=== PATIENT | female | born 1975 | race Caucasian/White ===

== ENCOUNTER → 2017-10-12 | Outpatient (CLI) | payer MEDICAID ==
[~2017-10-12] MED LIST: ACET500T68 PO; BUPR-133 PO; HYDR-4309 PO; IBUP-1687 PO; SULF5DRO OD; TRAM-420 PO
[2017-10-12 11:56] LABS: PLATELET COUNT, AUTOMATED 289 K/uL (150-450)
== END ==
LOC: LAB 11:42
PROVIDERS: ATTEND Anesthesiology
DX: Z01.812 Encounter for preprocedural laboratory examination (principal); M72.2 Plantar fascial fibromatosis
CPT/HCPCS: 36415; 85025

== ENCOUNTER 2017-10-18 00:45 | Day surgery (SDC) | payer MEDICAID ==
[~2017-10-18] VITALS: Ht 144.8 cm; Wt 123.4 kg
[2017-10-18] MEDS ORDERED: ONDANSETRON 4 MG/2 ML VIAL ONE (11:18)
[2017-10-18] MEDS ORDERED: LIDOCAINE MPF 1% 5 ML VIAL ONE (11:18)
[2017-10-18] MEDS ORDERED: METOCLOPRAMIDE 10 MG/2 ML SDV ONE (11:18)
[2017-10-18] MEDS ORDERED: DEXAMETHASONE SOD 4 MG/ML VIAL ONE (11:18)
[2017-10-18] MEDS ORDERED: PROPOFOL EMUL(*) 10MG/ML 20 ML 20 ML ONE (11:18)
[2017-10-18] MEDS ORDERED: fentaNYL CITR 100 MCG/2 ML AMP ONE ×3 (11:25→15:12)
[2017-10-18] MEDS ORDERED: ROPIVACAINE 0.5% 20 ML VIAL ONE ×2 (11:32→13:37)
[2017-10-18] MEDS ORDERED: ROPIVACAINE 0.2% 20 ML VIAL ONE ×4 (11:32→14:20)
[2017-10-18 11:51] VITALS: BP 136/81
[2017-10-18] MEDS ORDERED: FAMOTIDINE 20 MG TAB PO ONE (12:30)
[2017-10-18] MEDS ORDERED: LIDOCAINE/SOD BICARB 8.4% SYR ID ONE (12:30)
[2017-10-18] MEDS ORDERED: MIDAZOLAM 2 MG/2 ML VIAL IVP PRN (12:30)
[2017-10-18] MEDS ORDERED: ceFAZolin(*) 2GM/D5W 50ML 50 ML IVPB ONE (12:30)
[2017-10-18] MEDS ORDERED: NORMOSOL R SOLN(*) 1000 ML BAG 1,000 ML IV PRN (12:30)
[2017-10-18] MEDS ORDERED: BUPIVACAIN 0.25% INJ 50ML VIAL ONE (13:23)
[2017-10-18] MEDS ORDERED: DEXAMETHASONE SOD 20MG/5 ML VL ONE (13:23)
[2017-10-18] MEDS ORDERED: KETOROLAC 30 MG/ML VIAL ONE (14:55)
[2017-10-18 15:35] VITALS: BP 128/74
[2017-10-18 15:45] VITALS: BP 127/96
[2017-10-18 15:58] VITALS: BP 140/90
[2017-10-18 16:00] VITALS: BP 122/85
--- NOTE | 2017-10-19 07:22 | OPERATIVE REPORT 1 ---
EVENT DATE: October 18, 2017 SURGEON: Curly Real MD GAMMA OPERATOR: SUSIE Cummins ANESTHESIOLOGIST: Eliel Corbett MD ANESTHESIA: General C block PREOPERATIVE DIAGNOSIS Equinus contracture, gastrocnemius tightness with plantar fasciitis. POSTOPERATIVE DIAGNOSIS Equinus contracture, gastrocnemius tightness with plantar fasciitis. PROCEDURE PERFORMED Gastrocnemius lengthening/Jenni lengthening with injection of cortisone into the insertion of the plantar fascia. ESTIMATED BLOOD LOSS Minimal. FLUIDS Minimal. OPERATION The patient was brought to the operating room, placed in a supine position, was prepped and draped in normal sterile fashion using Prevail, sterile stockinette , sterile U drape and sterile extremity drape placed over the lower extremity. Stockinette was then sized for above knee and held with Coban. Esmarch was then used to exsanguinate the lower extremity as tourniquet was turned up to 350 mmHg. Due to the diameter of her calf, we made a slightly larger larger incision than usual. It was about 2.0-2.5 cm on the medial aspect of the gastrocnemius musculotendinous junction. Skin was incised with 15 blade down to subcutaneous tissue. Subcutaneous tissue was bluntly dissected all the way down to the fascia. Fascia was then identified and sharply dissected. Once I was able to do this, I bluntly dissected to find the gastrocnemius soleus junction, which I was able to find pretty easily. I placed a long pediatric speculum on either side of the gastrocnemius musculotendinous junction. Once I was able to see all the way across to the other side of the calf, I then used a small mets and went completely across, transecting them. Prior to this, I had her foot stuck at 90 degrees with the knee straight, and as soon as I released this, I was able to get up to 20 degrees without any difficulty. We washed out with normal saline. We then identified that there was a sponge that had been left in. We brought the fluoroscopy in because we could not actually find the sponge due to the size of the leg, and we were able to find it with the x-ray, remove the sponge without any difficulty. Count was then correct. We closed the subcutaneous tissue using 3-0 Monocryl, and the skin with andrea. Adaptic , 4x4's, cast padding and an Sandeep. Patient was then placed in a boot. She will follow up in 2-3 weeks, is to not to get it wet, and can do full weightbearing. MTDD
== END 2017-10-18 15:35 | disposition home or self-care (01) ==
LOC: OR 00:45
PROVIDERS: ATTEND Orthopaedic Surgery
DX: M72.2 Plantar fascial fibromatosis (principal); M21.6X1 Other acquired deformities of right foot
CPT/HCPCS: 27658; 76942; J1100; J1885; J2001; J2250; J2405; J2704; J2765; J2795; J3010; J3490; L4360; J0690

== ENCOUNTER 2018-01-12 02:53 | Day surgery (SDC) | payer MEDICAID ==
[~2018-01-12] VITALS: Ht 144.8 cm; Wt 123.4 kg
[2018-01-12 09:54] VITALS: BP 126/74
[2018-01-12] MEDS ORDERED: ROPIVACAINE 0.2% 20 ML VIAL ONE (10:21)
[2018-01-12] MEDS ORDERED: MIDAZOLAM 2 MG/2 ML VIAL ONE (10:39)
[2018-01-12] MEDS ORDERED: DEXAMETHASONE SOD PHOS 10MG/ML ONE (11:27)
[2018-01-12] MEDS ORDERED: PROPOFOL EMUL(*) 10MG/ML 20 ML 40 ML ONE (11:27)
[2018-01-12] MEDS ORDERED: ONDANSETRON 4 MG/2 ML VIAL ONE (11:27)
[2018-01-12] MEDS ORDERED: fentaNYL CITR 100 MCG/2 ML AMP ONE (11:36)
[2018-01-12] MEDS ORDERED: KETOROLAC 30 MG/ML VIAL ONE (11:41)
[2018-01-12] MEDS ORDERED: ASPI-1471 PO (12:02)
[2018-01-12 12:20] VITALS: BP 113/71
[2018-01-12 12:37] VITALS: BP 110/70
[2018-01-12 12:55] VITALS: BP 129/89
[2018-01-12] MEDS ORDERED: ceFAZolin(*) 2GM/D5W 50ML 50 ML IVPB ONE (13:55)
[2018-01-12] MEDS ORDERED: LIDOCAINE/SOD BICARB 8.4% SYR ID ONE (13:55)
[2018-01-12] MEDS ORDERED: NORMOSOL R SOLN(*) 1000 ML BAG 1,000 ML IV PRN (13:55)
[2018-01-12] MEDS ORDERED: MIDAZOLAM 2 MG/2 ML VIAL IVP PRN (13:55)
[2018-01-12] MEDS ORDERED: FAMOTIDINE 20 MG TAB PO ONE (13:55)
--- NOTE | 2018-01-12 15:43 | OPERATIVE REPORT 1 ---
EVENT DATE: January 12, 2018 SURGEON: Curly Real MD ANESTHESIOLOGIST: Higinio Vuong MD GRINDER SET UP OPERATOR UNIVERSAL: SUSIE Dejesus ANESTHESIA: General PREOPERATIVE DIAGNOSES 1. Equinus contracture. 2. Plantar fasciitis. POSTOPERATIVE DIAGNOSES 1. Equinus contracture. 2. Plantar fasciitis. PROCEDURE PERFORMED Gastrocnemius lengthening. ESTIMATED BLOOD LOSS Minimal. FLUID Minimal. TOURNIQUET TIME Less than 30 minutes. DESCRIPTION OF OPERATION The patient was brought to the operating room and placed in the supine position , prepped and draped in the normal sterile fashion using Prevail. Sterile stockinette, sterile U-drape, and sterile extremity drape placed over the lower extremity. Stockinette was incised from above the knee and held with Coban. Esmarch was then used to exsanguinate the lower extremity and the tourniquet turned up to 300 mmHg. Once this was done on the medial aspect of the gastrocnemius musculotendinous junction, the skin was incised, bluntly dissected through significant soft tissue down to the fascia. Fascia was sharply incised. At this point, I was able to find the interval between the soleus and the gastrocs. I then placed a speculum across the gastrocnemius tendon, pushing the sural nerve out of the way and the soleus out of the way. I then used sharp dissection scissors to transect all the way across the gastrocnemius tendinous junction all the way to the lateral side. Once that was completely released, we were able to get her foot with her knee in extension all the way up to about 20 degrees of dorsiflexion. We then closed using 2-0 Vicryl, 3-0 Monocryl, andrea, Adaptic, 4 x 4's, and an Sandeep, and she then had a boot placed. We will see her back in two weeks' time after for followup. LM
== END 2018-01-12 12:16 | disposition home or self-care (01) ==
LOC: OR 02:53
PROVIDERS: ATTEND Orthopaedic Surgery
DX: M72.2 Plantar fascial fibromatosis (principal); M21.6X2 Other acquired deformities of left foot; E66.9 Obesity, unspecified; G47.33 Obstructive sleep apnea (adult) (pediatric); F32.9 Major depressive disorder, single episode, unspecified; F17.210 Nicotine dependence, cigarettes, uncomplicated; Z99.81 Dependence on supplemental oxygen; Z68.43 Body mass index [BMI] 50.0-59.9, adult
CPT/HCPCS: 27685; 81025; 97116; J1100; J1885; J2250; J2405; J2704; J3010; L4360; J0690; J2795